=== PATIENT | female | born 1930 | race Caucasian/White ===

== ENCOUNTER 2019-11-09 10:04 | Emergency (ER) | payer MEDICARE, OTHER ==
--- NOTE | 2019-11-09 10:57 | EDM.PDOC ---
ED HPI GENERAL MEDICAL PROBLEM - General Chief Complaint: Bite:Animal, Insect Stated Complaint: STUNG BY MULTIPLE WASPS Time Seen by Provider: 11/09/19 10:57 - History of Present Illness INITIAL COMMENTS - FREE TEXT/NARRATIVE: 88-year-old female presents the emergency room after being stung by multiple bees on both hands and on her sides. The patient took 50 mg of Benadryl and came to the emergency room. This happened about an hour and a half prior to arrival. She is noticed a little bit of improvement with the Benadryl. She is not have any breathing difficulties or shortness of breath. The patient was outside and working around a plant and a bunch of bees must of been disturbed and got her hands and got underneath her shirt. The patient is unsure of her tetanus status. Bilateral Hand Pain Score (Numeric/FACES): 10 - Related Data Allergies Allergy/AdvReac Type Severity Reaction Status Date / Time celecoxib [From Celebrex] Allergy Hives Verified 11/09/19 10:21 Penicillins Allergy Hives Verified 11/09/19 10:21 risedronate sodium Allergy Body Aches Verified 11/09/19 10:21 [From Actonel] Home Meds: Home Meds Aspirin [Children's Aspirin] 81 mg PO DAILY 09/28/18 [History] Metoprolol Succinate [Toprol XL] 25 mg PO DAILY 09/28/18 [History] Sertraline HCl 25 mg PO DAILY 09/28/18 [History] Simvastatin 20 mg PO BEDTIME 09/28/18 [History] traMADol [Ultram] 50 - 100 mg PO Q8H PRN #10 tab 09/29/18 [Rx] Past Medical History HEENT History: Reports: Hard of Hearing, Impaired Vision, Other (See Below) Other HEENT History: has hearing aids, glasses, permanent bridges Cardiovascular History: Reports: High Cholesterol, Hypertension Respiratory History: Reports: None Genitourinary History: Reports: None EXCH[employer] TR[employer]ER History: Reports: None Other Musculoskeletal History: ac joing bone spurs, carpal tunnel syndrome, right knee pain, right rotator cuff impingment and pain Neurological History: Reports: None Psychiatric History: Reports: Depression Endocrine/Metabolic History: Reports: None Hematologic History: Reports: None Immunologic History: Reports: None Oncologic (Cancer) History: Reports: None Dermatologic History: Reports: None - Infectious Disease History Infectious Disease History: Reports: Chicken Pox, Measles, Mumps - Past Surgical History Head Surgeries/Procedures: Reports: None HEENT Surgical History: Reports: Cataract Surgery Cardiovascular Surgical History: Reports: None Respiratory Surgical History: Reports: None GI Surgical History: Reports: Colonoscopy Female Surgical History: Reports: Hysterectomy, Oophorectomy Endocrine Surgical History: Reports: None Neurological Surgical History: Reports: None Musculoskeletal Surgical History: Reports: Hip Replacement, Knee Replacement Oncologic Surgical History: Reports: None Dermatological Surgical History: Reports: None Social & Family History - Family History Family Medical History: Noncontributory - Tobacco Use Smoking Status *Q: Never Smoker Second Hand Smoke Exposure: No - Caffeine Use Caffeine Use: Reports: Coffee - Recreational Drug Use Recreational Drug Use: No ED ROS GENERAL - Review of Systems Review Of Systems: See Below Constitutional: Reports: No Symptoms HEENT: Reports: No Symptoms Respiratory: Reports: No Symptoms Cardiovascular: Reports: No Symptoms GI/Abdominal: Reports: No Symptoms Neurological: Reports: No Symptoms ED EXAM, ANIMAL BITE - Physical Exam Exam: See Below Exam Limited By: No Limitations General Appearance: Alert, No Apparent Distress Eye Exam: Bilateral Eye: Normal Inspection Ears: Normal External Exam, Normal Canal, Hearing Grossly Normal, Normal TMs Nose: Normal Inspection, Normal Mucosa, No Blood Throat/Mouth: Normal Inspection, Normal Lips, Normal Teeth, Normal Gums, Normal Oropharynx, Normal Voice, No Airway Compromise Head: Atraumatic, Normocephalic Neck: No: Lymphadenopathy (L), Lymphadenopathy (R) Respiratory/Chest: No Respiratory Distress, Lungs Clear, Normal Breath Sounds Cardiovascular: Regular Rate, Rhythm, No Edema, No Murmur GI/Abdominal: Normal Bowel Sounds, Soft, Non-Tender Extremities: Normal Inspection, No Pedal Edema Neurological: Alert, Oriented, Normal Cognition Skin Exam: Other (The dorsum of her hands has multiple sting sites that are swollen and erythematous. They are improving slightly with the Benadryl similar lesions on her side) Course - Vital Signs Last Recorded V/S: Last Vital Signs Temp 36.3 C 11/09/19 10:17 Pulse 72 11/09/19 10:17 Resp 19 11/09/19 10:17 BP 208/82 H 11/09/19 10:17 Pulse Ox 97 11/09/19 10:17 - Orders/Labs/Meds Meds: Medications Discontinued Medications Generic Name Dose Route Start Last Admin Trade Name Christie PRN Reason Stop Dose Admin Famotidine 40 mg 11/09/19 11:05 11/09/19 11:09 Pepcid PO 11/09/19 11:06 40 mg ONETIME ONE Administration - Re-Assessments/Exams Free Text/Narrative Re-Assessment/Exam: 11/09/19 12:01 Patient self medicated with 50 mg of Benadryl and this is helping a little bit we gave her 40 mg of oral famotidine and she continued to improve much quicker. At this point we will update her tetanus and discharge her on famotidine and as needed Benadryl. Departure - Departure Time of Disposition: 12:01 Disposition: Home, Self-Care 01 Clinical Impression: Hymenoptera sting - Discharge Information Referrals: Noé Bee MD [Primary Care Provider] - Forms: ED Department Discharge Additional Instructions: Return to the emergency room with any questions problems or worsening symptoms. supply chain associate some [id number] famotidine, or Pepcid, take 20 mg twice daily until your symptoms have completely resolved. Use Benadryl 25 mg 4 times a day only if needed. Sepsis Event Note (ED) - Evaluation Sepsis Screening Result: No Definite Risk - Focused Exam Vital Signs: Vital Signs Temp Pulse Resp BP Pulse Ox 11/09/19 10:17 36.3 C 72 19 208/82 H 97
[2019-11-09] MEDS ORDERED: Famotidine 20 MG Tab PO ONE (11:05)
[2019-11-09] MEDS ORDERED: Diphtheria,Pertussis(Acell),Tetanus Vaccine 0.5 ML Syringe IM ONE (11:59)
== END 2019-11-09 12:14 | disposition home or self-care (01) ==
LOC: JD.ED 10:04
DX: T63.441A Toxic effect of venom of bees, accidental (unintentional), initial encounter (principal); I10 Essential (primary) hypertension; F32.9 Major depressive disorder, single episode, unspecified; E78.00 Pure hypercholesterolemia, unspecified; Z88.0 Allergy status to penicillin; Z88.3 Allergy status to other anti-infective agents; Z88.8 Allergy status to other drugs, medicaments and biological substances; Z79.82 Long term (current) use of aspirin; Z79.899 Other long term (current) drug therapy
CPT/HCPCS: 90471; 90715; 99282; A9270